=== PATIENT | female | born 1995 | race Caucasian/White ===

== ENCOUNTER 2017-12-08 15:00 | Emergency (ER) | payer BC ==
[2017-12-08] MEDS ORDERED: METOCLOPRAMIDE HCL ORAL SOLN 10 MG/10 ML UDCUP PO ONE (17:20)
[2017-12-08] MEDS ORDERED: MAG HYDROX/AL HYDROX/SIMETH SUSP 30 ML UDCUP PO ONE (17:20)
[2017-12-08] MEDS ORDERED: LIDOCAINE 2% VISCOUS SOLN 20 ML UDCUP PO ONE (17:20)
--- NOTE | 2017-12-08 17:22 | ER Document Report ---
ED General - General Chief Complaint: Abdominal Pain Stated Complaint: ABDOMINAL PAIN Time Seen by Provider: 12/08/17 17:15 Mode of Arrival: Ambulatory Information source: Patient Notes: 22-year-old female presents with epigastric burning sensation has been intermittent since July. Patient notes over the past 2 days has worsened. She admits to bad taste in her mouth worsens with spicy foods. She denies any fevers or chills denies any significant right-sided or left-sided pain states it is right in the middle TRAVEL OUTSIDE OF THE [place] IN LAST 30 DAYS: No - HPI Onset: Other Onset/Duration: Intermittent, Worse Quality of pain: Burning Severity: Mild Pain Level: 1 Associated symptoms: Nausea Exacerbated by: Food Relieved by: Denies Similar symptoms previously: Yes Recently seen / treated by doctor: Yes - Related Data Allergies/Adverse Reactions: apple Allergy (Verified 12/08/17 15:01) Cephalosporins Allergy (Verified 12/08/17 15:01) erythromycin base Allergy (Verified 12/08/17 15:01) Penicillins Allergy (Verified 12/08/17 15:01) rice Allergy (Verified 12/08/17 15:01) wheat Allergy (Verified 12/08/17 15:01) ENVIRONMENTAL Allergy (Uncoded 12/08/17 15:01) Past Medical History - Social History Smoking Status: Never Smoker Cigarette use (# per day): No Chew tobacco use (# tins/day): No Smoking Education Provided: No Frequency of alcohol use: None Drug Abuse: None Family History: Reviewed & Not Pertinent Patient has suicidal ideation: No Patient has homicidal ideation: No Pulmonary Medical History: Reports: Hx Asthma Renal/ Medical History: Denies: Hx Peritoneal Dialysis Past Surgical History: Reports: Hx Tonsillectomy Review of Systems - Review of Systems Notes: REVIEW OF SYSTEMS: CONSTITUTIONAL : Denies fever, chills, or sweats. Denies recent illness. EENT: Denies eye, ear, throat, or mouth pain or symptoms. Denies nasal or sinus congestion or discharge. Denies throat, tongue, or mouth swelling or difficulty swallowing. CARDIOVASCULAR: Denies chest pain. Denies palpitations or racing or irregular heart beat. Denies ankle edema. RESPIRATORY: Denies cough, cold, or chest congestion. Denies shortness of breath, difficulty breathing, or wheezing. GASTROINTESTINAL: Admits to abdominal pain GENITOURINARY: Denies difficulty urinating, painful urination, burning, frequency, blood in urine, or discharge. FEMALE GENITOURINARY: Denies vaginal bleeding, heavy or abnormal periods, irregular periods. Denies vaginal discharge or odor. MUSCULOSKELETAL: Denies back or neck pain or stiffness. Denies joint pain or swelling. SKIN: Denies rash, lesions or sores. HEMATOLOGIC : Denies easy bruising or bleeding. LYMPHATIC: Denies swollen, enlarged glands. NEUROLOGICAL: Denies confusion or altered mental status. Denies passing out or loss of consciousness. Denies dizziness or lightheadedness. Denies headache. Denies weakness or paralysis or loss of use of either side. Denies problems with gait or speech. Denies sensory loss, numbness, or tingling. Denies seizures. PSYCHIATRIC: Denies anxiety or stress. Denies depression, suicidal ideation, or homicidal ideation. ALL OTHER SYSTEMS REVIEWED AND NEGATIVE. PHYSICAL EXAMINATION: GENERAL: Well-appearing, well-nourished and in no acute distress. HEAD: Atraumatic, normocephalic. EYES: Pupils equal round and reactive to light, extraocular movements intact, conjunctiva are normal. ENT: Nares patent, oropharynx clear without exudates. Moist mucous membranes. NECK: Normal range of motion, supple without lymphadenopathy LUNGS: Breath sounds clear to auscultation bilaterally and equal. No wheezes rales or rhonchi. HEART: Regular rate and rhythm without murmurs ABDOMEN: Tender in epigastric region Female : deferred Musculoskeletal: Normal range of motion, no pitting or edema. No cyanosis. NEUROLOGICAL: Cranial nerves grossly intact. Normal speech, normal gait. Normal sensory, motor exams PSYCH: Normal mood, normal affect. SKIN: Warm, Dry, normal turgor, no rashes or lesions noted. Dictation was performed using [employer] voice recognition software Physical Exam - Vital signs Vitals: Temp Pulse Resp BP Pulse Ox 99.2 F 95 16 125/73 100 12/08/17 15:06 12/08/17 15:06 12/08/17 15:06 12/08/17 15:06 12/08/17 15:06 Course - Re-evaluation Re-evalutation: 12/08/17 17:21 We discussed cholecystitis pancreatitis and other intra-abdominal sources of infection pain, it appears to be more epigastric and related to gastritis, GI cocktail has been ordered 12/08/17 17:59 Patient notes symptoms are completely resolved with GI cocktail will discharge home at this time After performing a Medical Screening Examination, I estimate there is LOW risk for ACUTE APPENDICITIS, BOWEL OBSTRUCTION, ACUTE CHOLECYSTITIS, PERFORATED DIVERTICULITIS, INCARCERATED HERNIA, PANCREATITIS, PELVIC INFLAMMATORY DISEASE, PERFORATED ULCER, ECTOPIC , or TUBO-OVARIAN ABSCESS, thus I consider the discharge disposition reasonable. Also, there is no evidence or peritonitis , sepsis, or toxicity. I have reevaluated this patient multiple times and no significant life threatening changes are noted. The patient and I have discussed the diagnosis and risks, and we agree with discharging home with close follow-up with the understanding that symptoms and presentations can change. We also discussed returning to the Emergency Department immediately if new or worsening symptoms occur. We have discussed the symptoms which are most concerning (e.g., bloody stool, fever, changing or worsening pain, vomiting) that necessitate immediate return. - Vital Signs Vital signs: Temp Pulse Resp BP Pulse Ox 99.2 F 95 16 125/73 100 12/08/17 15:06 12/08/17 15:06 12/08/17 15:06 12/08/17 15:06 12/08/17 15:06 Discharge - Discharge Clinical Impression: Epigastric pain GERD (gastroesophageal reflux disease) Qualifiers: Esophagitis presence: with esophagitis Qualified Code(s): K21.0 - Gastro- esophageal reflux disease with esophagitis Condition: Stable Disposition: HOME, SELF-CARE Instructions: Reflux Disease (GERD) ([facility]) Additional Instructions: Follow up with your physician tomorrow for further care or return to the ED IMMEDIATELY if symptoms worsen or new concerns occur. If you cannot afford to follow up with your primary care physician a list of low cost clinics have been provided at the end of your discharge papers as well. Prescriptions: Famotidine [Pepcid 40 mg Tablet] 40 mg PO DAILY #30 tablet
[2017-12-08 18:05] VITALS: BP 108/65
== END 2017-12-08 18:05 | disposition home or self-care (01) ==
LOC: ER 15:00
DX: R10.13 Epigastric pain (principal); K21.0 Gastro-esophageal reflux disease with esophagitis
CPT/HCPCS: 99283; J3490

== ENCOUNTER 2017-12-10 | Observation (INO) | payer BC ==
[2017-12-10] MEDS ORDERED: OXYCODONE-ACETAMINOPHEN 5-325 MG TABLET PO ONE (00:49)
[2017-12-10] MEDS ORDERED: ONDANSETRON 4 MG TAB.RAPDIS PO ONE (00:49)
[2017-12-10] MEDS ORDERED: NORMAL SALINE 1000 ML 1,000 ML IV ONE (00:49)
--- NOTE | 2017-12-10 00:52 | ER Document Report ---
ED GI/ - General Chief Complaint: Abdominal Pain Stated Complaint: ABDOMINAL PAIN Time Seen by Provider: 12/10/17 00:43 Notes: Patient is a 22-year-old female that comes emergency department for chief complaint of upper abdominal pain and she states symptoms started 3 days ago, have been worsening, she was seen yesterday, started on Pepcid, she states she has worsened since then and now she feels pain radiating out to the sides from the middle of her upper abdomen. She states that she almost cannot eat anything unless extremely bland things like oatmeal and small amounts. If she eats anything else the pain becomes severe and she develops nausea. She denies vomiting, fever, abnormal bowel movements. She is on the Depo-Provera shot, takes allergy medications, has had tonsillectomy, denies any other medical history. TRAVEL OUTSIDE OF THE [place] IN LAST 30 DAYS: No - Related Data Allergies/Adverse Reactions: apple Allergy (Verified 12/08/17 15:01) Cephalosporins Allergy (Verified 12/08/17 15:01) erythromycin base Allergy (Verified 12/08/17 15:01) Penicillins Allergy (Verified 12/08/17 15:01) rice Allergy (Verified 12/08/17 15:01) wheat Allergy (Verified 12/08/17 15:01) ENVIRONMENTAL Allergy (Uncoded 12/08/17 15:01) Past Medical History - General Information source: Patient - Social History Smoking Status: Never Smoker Frequency of alcohol use: None Drug Abuse: None Lives with: Family Family History: Reviewed & Not Pertinent Pulmonary Medical History: Reports: Hx Asthma Renal/ Medical History: Denies: Hx Peritoneal Dialysis Past Surgical History: Reports: Hx Tonsillectomy - Immunizations Immunizations up to date: Yes Hx Diphtheria, Pertussis, Tetanus Vaccination: Yes Review of Systems - Review of Systems Constitutional: No symptoms reported EENT: No symptoms reported Cardiovascular: No symptoms reported Respiratory: No symptoms reported Gastrointestinal: See HPI Genitourinary: No symptoms reported Female Genitourinary: No symptoms reported Musculoskeletal: No symptoms reported Skin: No symptoms reported Hematologic/Lymphatic: No symptoms reported Neurological/Psychological: No symptoms reported Physical Exam - Vital signs Vitals: Temp Pulse BP Pulse Ox 98.7 F 114 H 129/86 H 99 12/10/17 00:26 12/10/17 00:26 12/10/17 00:26 12/10/17 00:26 Interpretation: Normal - General General appearance: Alert In distress: None - HEENT Head: Normocephalic, Atraumatic Eyes: Normal Pupils: PERRL - Respiratory Respiratory status: No respiratory distress Chest status: Nontender Breath sounds: Normal Chest palpation: Normal - Cardiovascular Rhythm: Regular Heart sounds: Normal auscultation Murmur: No - Abdominal Inspection: Normal Distension: No distension. No: Distended Bowel sounds: Normal Tenderness: Tender - Tender in the right upper quadrant and epigastric areas with wincing. Lower abdomen is completely benign, Knapp's sign. No: McBurney' s point, Rebound Organomegaly: No organomegaly - Back Back: Normal, Nontender - Extremities General upper extremity: Normal inspection, Nontender, Normal color, Normal ROM , Normal temperature General lower extremity: Normal inspection, Nontender, Normal color, Normal ROM , Normal temperature, Normal weight bearing. No: Misti's sign - Neurological Neuro grossly intact: Yes Cognition: Normal Orientation: AAOx4 Ulisses Coma Scale Eye Opening: Spontaneous Ulisses Coma Scale Verbal: Oriented Ulisses Coma Scale Motor: Obeys Commands [place] Coma Scale Total: 15 Speech: Normal Motor strength normal: LUE, RUE, LLE, RLE Sensory: Normal - Psychological Associated symptoms: Normal affect, Normal mood - Skin Skin Temperature: Warm Skin Moisture: Dry Skin Color: Normal Course - Re-evaluation Re-evalutation: CBC shows mild leukocytosis at 10.8 with no bandemia or shift. Chemistry unremarkable including lipase. HCG is negative. 12/10/17 03:00 Patient reevaluated at bedside. Pain medication improved her symptoms but she does continue to have pain. She continues to have significant amount of pain on examination. She is otherwise well-appearing. Patient stating that she can barely eat and only intermittently, can barely sleep because of the level discomfort that she now has. 12/10/17 Ultrasound showing cholelithiasis and sludge without cholecystitis or choledocholithiasis. I discussed with patient in detail, she requests to speak to a surgeon because she has reached a point where she cannot really eat anything, she cannot get comfortable or sleep, and her pain returned after being given pain medication. Patient will be given additional pain medication, be kept n.p.o., given fluids, and will discuss with surgery. Discussed with Dr. Milton, general surgery, he will accept patient to his service and she will have surgery later today. Patient states satisfaction and agreement with this plan. - Vital Signs Vital signs: Temp Pulse Resp BP Pulse Ox 97.9 F 81 112/65 100 12/10/17 04:31 12/10/17 04:31 12/10/17 04:31 12/10/17 04:31 - Laboratory Result Diagrams: 12/10/17 01:15 12/10/17 01:15 Laboratory results interpreted by me: 12/10/17 12/10/17 01:15 01:15 WBC 10.9 H Glucose 115 H Discharge - Discharge Clinical Impression: RUQ abdominal pain Cholelithiasis Qualifiers: Cholelithiasis location: gallbladder Cholecystitis presence: without cholecystitis Biliary obstruction: without biliary obstruction Qualified Code(s) : K80.20 - Calculus of gallbladder without cholecystitis without obstruction Condition: Stable Disposition: ADMITTED OBSERVATION Admitting Provider: Surgicalist Unit Admitted: Surgical Floor
[2017-12-10 01:30] LABS: ABSOLUTE BASOPHILS # (AUTO) 0.1 10^3/uL (0.0-0.2); ABSOLUTE EOSINOPHILS # (AUTO) 0.5 10^3/uL (0.0-0.6); ABSOLUTE LYMPHOCYTES (AUTO) 2.9 10^3/uL (0.5-4.7); ABSOLUTE MONOCYTES (AUTO) 0.9 10^3/uL (0.1-1.4); ABSOLUTE NEUT (AUTO) 6.4 10^3/uL (1.7-8.2); EOSINOPHILS % (AUTO) 4.3 % (0-6); HEMATOCRIT 42.6 % (36.0-47.0); HEMOGLOBIN 14.4 g/dL (12.0-15.5); MEAN CORPUSCULAR HEMOGLOBIN 27.9 pg (27.0-33.4); MEAN CORPUSCULAR HGB CONC 33.7 g/dL (32.0-36.0); MEAN CORPUSCULAR VOLUME 83 fl (80-97); MONOCYTES % (AUTO) 8.6 % (3-13); PLATELET COUNT 249 10^3/uL (150-450); RED BLOOD COUNT 5.14 10^6/uL (3.72-5.28); SEGMENTED NEUTROPHILS % (AUTO) 59.1 % (42-78); TOTAL CELLS COUNTED % (AUTO) 100 %; WHITE BLOOD COUNT 10.9 10^3/uL (4.0-10.5)
[2017-12-10 01:39] LABS: ALANINE AMINOTRANSFERASE 26 U/L (9-52); ALBUMIN 4.1 g/dL (3.5-5.0); ALKALINE PHOSPHATASE 66 U/L (38-126); ANION GAP 8 (5-19); ASPARTATE AMINO TRANSFERASE 18 U/L (14-36); BILIRUBIN,DIRECT 0.3 mg/dL (0.0-0.4); BILIRUBIN,TOTAL 0.3 mg/dL (0.2-1.3); BLOOD UREA NITROGEN 9 mg/dL (7-20); CARBON DIOXIDE 25 mmol/L (22-30); CHLORIDE 107 mmol/L (98-107); GLUCOSE 115 mg/dL (75-110); LIPASE 156.2 U/L (23-300); SODIUM 140.4 mmol/L (137-145); TOTAL PROTEIN 7.1 g/dL (6.3-8.2)
[2017-12-10] MEDS ORDERED: NORMAL SALINE 1000 ML 1,000 ML IV PRN (02:56)
--- NOTE | 2017-12-10 03:55 | RADIOLOGY REPORT (SQ) ---
EXAM DESCRIPTION: U/S ABDOMEN LIMITED W/O DOP CLINICAL HISTORY: epigastric and RUQ pain COMPARISON: None. TECHNIQUE: Real-time sonographic images of the right upper abdomen were obtained using a curved multihertz transducer. FINDINGS: The visualized portions of the pancreas are unremarkable. The visualized portions of the aorta and IVC are unremarkable. The liver has normal contour and increased echogenicity. Hepatopedal flow in the portal vein. Common bile duct measures 0.5 cm. Echogenic material noted in the gallbladder lumen. 2 shadowing echogenic structures in the gallbladder lumen identified, the largest measuring 1.1 cm at the gallbladder neck. Normal gallbladder wall thickness. Negative reported sonographic Knapp sign. The right kidney measures 11.0 cm in length. No hydronephrosis, solid renal mass, or shadowing calculi. IMPRESSION: 1. Cholelithiasis with gallbladder sludge. These findings could be seen with but are not diagnostic for acute cholecystitis. 2. Hepatic steatosis.
[2017-12-10] MEDS ORDERED: ONDANSETRON HCL INJ/PF 4 MG/2 ML SDV IV ONE (06:14)
[2017-12-10] MEDS ORDERED: FENTANYL CITRATE INJ/PF 100 MCG/2 ML AMPUL IV ONE (06:14)
[2017-12-10] MEDS ORDERED: ONDANSETRON HCL INJ/PF 4 MG/2 ML SDV IV PRN (06:56)
[2017-12-10] MEDS ORDERED: HYDROMORPHONE HCL INJ/PF 2 MG/ML AMPULE IV PRN (06:56)
[2017-12-10] MEDS ORDERED: LEVOFLOXACIN 750 MG/D5W RTU 750 MG/150 ML RTUPB IV SCH (06:57)
[2017-12-10] MEDS ORDERED: HYDROMORPHONE HCL INJ/PF 2 MG/ML AMPULE ONE ×4 (08:17→15:42)
[2017-12-10] MEDS ORDERED: GLYCOPYRROLATE INJ 0.4 MG/2 ML VIAL ONE ×2 (09:59→10:00)
[2017-12-10] MEDS ORDERED: DEXAMETHASONE SOD PHOSPHATE INJ 4 MG/1 ML VIAL ONE ×2 (09:59→10:00)
[2017-12-10] MEDS ORDERED: ROCURONIUM BROMIDE INJ 50 MG/5 ML VIAL IV ONE ×2 (09:59→10:00)
[2017-12-10] MEDS ORDERED: LIDOCAINE 2% INJ-PF (20 MG/ML) 2 ML AMPUL ONE ×2 (09:59→10:00)
[2017-12-10] MEDS ORDERED: ONDANSETRON HCL INJ/PF 4 MG/2 ML SDV ONE ×2 (09:59→10:00)
[2017-12-10] MEDS ORDERED: SUCCINYLCHOLINE CHLORIDE INJ 200 MG/10 ML VIAL ONE ×2 (09:59→10:00)
[2017-12-10] MEDS ORDERED: NEOSTIGMINE METHYLSULFATE 10 MG/10 ML VIAL ONE (10:00)
[2017-12-10] MEDS ORDERED: PROMETHAZINE HCL INJ 25 MG/1 ML VIAL ONE ×3 (10:22→15:55)
[2017-12-10] MEDS ORDERED: PROMETHAZINE HCL INJ 25 MG/1 ML VIAL IV PRN ×2 (10:24→14:22)
[2017-12-10] MEDS: POTASSI CL 20 MEQ/D5-1/2NS 1L 1000 ML IV PRN ×2 (10:44→20:01)
[2017-12-10] MEDS ORDERED: BUPIVACAINE HCL 0.25 % INJ/PF (2.5 MG/1 ML) 30 ML VIAL ONE ×2 (11:53→13:55)
[2017-12-10] MEDS ORDERED: FENTANYL CITRATE INJ/PF 100 MCG/2 ML AMPUL ONE (13:36)
[2017-12-10] MEDS ORDERED: ACETAMINOPHEN 100 ML IV ONE (13:36)
[2017-12-10] MEDS ORDERED: MIDAZOLAM 2 MG/2 ML INJ ONE (13:36)
[2017-12-10] MEDS ORDERED: PROPOFOL INJ 200 MG/20 ML VIAL IV ONE (13:36)
[2017-12-10] MEDS ORDERED: MEPERIDINE HCL/PF INJ 25 MG/1 ML DISP.SYRIN IV PRN (14:22)
[2017-12-10] MEDS ORDERED: MORPHINE SULFATE 10 MG/ML INJ IV PRN (14:22)
[2017-12-10] MEDS ORDERED: DIPHENHYDRAMINE HCL 50 MG/ML VIAL IV PRN (14:22)
[2017-12-10] MEDS ORDERED: FENTANYL CITRATE INJ/PF 100 MCG/2 ML AMPUL IV PRN ×3 (14:22)
[2017-12-10] MEDS: HYDROMORPHONE HCL INJ/PF 2 MG/ML AMPULE IV PRN (15:40)
--- NOTE | 2017-12-10 16:09 | OPERATIVE REPORT E ---
Operative Report NAME: FARHAN MADSEN : 1995 AGE: 22Y DATE OF SURGERY: 12/10/2017 ROOM: 219 PREOPERATIVE DIAGNOSIS: ACUTE CHOLECYSTITIS. POSTOPERATIVE DIAGNOSIS: ACUTE CALCULOUS CHOLECYSTITIS. OPERATION: Laparoscopic cholecystectomy. SURGEON: MELLISA ROSENBERG M.D. ANESTHESIA: General. ESTIMATED BLOOD LOSS: Less than 10 mL. SPECIMEN: Multiple gallstones and the gallbladder. HISTORY/INDICATIONS: As described. PROCEDURE: After induction of general anesthesia, in supine position, with SCD boots, abdomen was cleaned and prepped in sterile field. Initial access, supraumbilical 12-mm trocar inserted with open technique, and then a 5-mm trocar in the epigastric area and another 5-mm in the right upper quadrant area. Findings: Gallbladder was acutely inflamed, surrounded by multiple adhesions from the gallbladder to the omentum. All the adhesions were taken down. Gallbladder initially decompressed by opening the gallbladder. Basically, patient had a mucocele with obstructed gallbladder. Then the gallbladder was dissected down from fundus down approach carefully. Cystic artery was identified and dissected away and then divided between clips with the Harmonic scalpel. Then the cystic duct was clearly dissected all around and then it was securely ligated with 2 applications of Endoloops, 1 was 0 Vicryl and 1 was 0 PDS, and the loops were applied, securely ligating the cystic duct. Then it was divided close to the gallbladder neck. Gallbladder along with its contents was retrieved with an Endo Catch bag. Abdominal cavity copiously irrigated and suctioned out, completely and thoroughly hemostatic. Then all the trocars were removed and pneumoperitoneum . Closed with 0 Vicryl for the fascia and 2-0 and 4-0 Vicryl for the skin. Patient tolerated procedure well and was taken to recovery room in stable condition. DICTATING PHYSICIAN: MELLISA ROSENBERG M.D. [id number] PHY#: [id number] ID: [id number] JOB#: [id number] ACCT: [id number] cc:MELLISA ROSENBERG M.D. > [facility]
--- NOTE | 2017-12-10 16:13 | HISTORY AND PHYSICAL E ---
History and Physical NAME: FARHAN MADSEN : 1995 AGE: 22Y ADMITTED: 12/10/2017 ROOM: 219 HISTORY OF PRESENT ILLNESS: Patient presented to emergency room with history of severe acute abdominal pain for the past several hours, not getting any better. She underwent ultrasound of the gallbladder test done, which revealed multiple gallstones impacting the gallbladder. Patient received intravenous pain medication and did not have relief of the pain. Patient has a history of upper abdominal pain in the past. She is otherwise a very healthy young female patient. PAST MEDICAL PROBLEMS: None. PAST SURGICAL HISTORY: None. REVIEW OF SYSTEMS: As per examination. PHYSICAL EXAMINATION: GENERAL: Patient is awake, alert, oriented, afebrile. HEENT: No icterus in the sclerae. NECK: No lymphadenopathy, no masses, no thyromegaly. CARDIOVASCULAR: Both heart sounds are regular. No murmurs or gallops. RESPIRATORY: Both lungs are clear to auscultation. ABDOMEN: She has no distention. Soft abdomen. Tenderness in right upper quadrant area. No palpable masses. No palpable hernia. Normal bowel sounds on auscultation. EXTREMITIES: Normally perfused. DIAGNOSTICS: Ultrasound of the gallbladder revealed multiple large gallstones. IMPRESSION: Cholelithiasis, cholecystitis. PLAN: Admit. IV antibiotic. Prepare for laparoscopic cholecystectomy today. DICTATING PHYSICIAN: MELLISA ROSENBERG M.D. [id number] PHY#: [id number] ID: [id number] JOB#: [id number] ACCT: [id number] cc:NO Jaleel LOO M.D. >
[2017-12-11] MEDS: HYDROMORPHONE HCL INJ/PF 2 MG/ML AMPULE IV PRN (00:56)
[2017-12-11] MEDS: POTASSI CL 20 MEQ/D5-1/2NS 1L 1000 ML IV PRN (06:17)
[2017-12-11] MEDS: HYDROCODONE/ACETAMINOPHEN 5-325 MG TABLET PO PRN ×2 (07:30→14:38)
[2017-12-11] MEDS ORDERED: ENOXAPARIN SODIUM INJ 40 MG/0.4 ML DISP.SYRIN SUBCUT SCH (10:00)
[2017-12-11 14:12] VITALS: BP 115/65
[2017-12-11] MEDS ORDERED: INFLUENZA ADLT QUAD (36MOS+) 2017-18 VAC 0.5 ML SYR IM PRN (14:26)
--- NOTE | 2017-12-11 20:00 | PDOC DISCHARGE SUMMARY ---
General - Admit/Disc Date/PCP Admission Date/Primary Care Provider: 12/10/17 06:22 NO LOCALMD Discharge Date: 12/11/17 - Additional Information Resuscitation Status: Full Code Discharge Diet: As Tolerated, Regular Discharge Activity: Activity As Tolerated, No Lifting Over 10 Pounds, No Lifting /Push/Pulling, No tub bath Prescriptions: Acetaminophen with Codeine [Tylenol #3 Tablet] 1 each PO Q6HP PRN #30 tablet PRN Reason: Docusate Sodium [Colace 100 mg Capsule] 100 mg PO BID #60 capsule Home Medications: Albuterol Sulfate [Ventolin Hfa] 1 puff IH Q4HP PRN 12/10/17 Famotidine [Pepcid 20 mg Tablet] 20 mg PO DAILY 12/10/17 Medroxyprogesterone Acetate [Depo-Provera] 150 mg PO .MONTHLY 12/10/17 Acetaminophen with Codeine [Tylenol #3 Tablet] 1 each PO Q6HP PRN #30 tablet 10/16 Docusate Sodium [Colace 100 mg Capsule] 100 mg PO BID #60 capsule 12/11/17 History of Present Illness History of Present Illness: FARHAN MADSEN is a 22 year old female who was admitted yesterday with cholelithiasis and RUQ pain and a diagnosis of cholecystitis. She had a laparoscopic cholecystectomy yesterday. Hospital Course Hospital Course: she has done well post laparoscopic cholecystectomy, is tolerating a diet, no nausea or vomiting. Physical Exam Vital Signs: Temp Pulse Resp BP Pulse Ox 98.2 F 73 17 115/65 100 12/11/17 13:47 12/11/17 13:47 12/11/17 13:47 12/11/17 13:47 12/11/17 13:47 Intake & Output 12/10/17 12/11/17 12/12/17 06:59 06:59 06:59 Intake Total 1090 Balance 1090 General appearance: PRESENT: no acute distress, obese, well-developed, well- nourished Head exam: PRESENT: atraumatic, normocephalic Eye exam: PRESENT: conjunctiva pink, EOMI, PERRLA. ABSENT: scleral icterus Ear exam: PRESENT: normal external ear exam Neck exam: ABSENT: carotid bruit, JVD, lymphadenopathy, thyromegaly Respiratory exam: PRESENT: clear to auscultation merna. ABSENT: rales, rhonchi, wheezes Cardiovascular exam: PRESENT: RRR. ABSENT: diastolic murmur, rubs, systolic murmur GI/Abdominal exam: PRESENT: normal bowel sounds, soft, other - incisions are clean, dry, intact. ABSENT: distended, guarding, mass, organolmegaly, rebound, tenderness Neurological exam: PRESENT: alert, awake, oriented to person, oriented to place , oriented to time, oriented to situation, CN II-XII grossly intact. ABSENT: motor sensory deficit Results Impressions: Abdomen Ultrasound 12/10/17 01:53 IMPRESSION: 1. Cholelithiasis with gallbladder sludge. These findings could be seen with but are not diagnostic for acute cholecystitis. 2. Hepatic steatosis. Plan Discharge Plan: discharge home. F/u in [facility] x 1 week home on tyl#3 1-2 tabs po q6hr prn #40 colace 100mg po bid #30 ok to shower no tub baths x 3 weeks no heavy lifting > 10 lbs x 4 weeks Time Spent: Less than 30 Minutes
== END 2017-12-11 15:46 | disposition home or self-care (01) ==
LOC: ER → UNDOADMOB 06:22 → EH 06:22 → 2S 07:50
PROVIDERS: ATTEND Colon & Rectal Surgery
PROC: 0FT44ZZ Resection of Gallbladder, Percutaneous Endoscopic Approach (ICD-10-PCS; principal; 2017-12-10 14:40)
PROC: 3E0234Z Introduction of Serum, Toxoid and Vaccine into Muscle, Percutaneous Approach (ICD-10-PCS; 2017-12-11)
DX: K80.12 Calculus of gallbladder with acute and chronic cholecystitis without obstruction (principal); Z23 Encounter for immunization; Z79.3 Long term (current) use of hormonal contraceptives
CPT/HCPCS: 99285; 96361; 96374; 96375; 36415; 83690; 85025; 81025; 80053; 88304 ×2; 76705; 90686; 94799; 47562; G0378 ×3; J2250; J3490 ×2; J1100; S0119; J3010; J1650; J1170 ×2; J3480 ×2; J2550 ×2; J0330; J2405; J7030; J2704; J1956; J0131; 790

== ENCOUNTER 2018-05-06 18:24 | Emergency (ER) | payer OTHER, BC ==
--- NOTE | 2018-05-06 19:17 | ER Document Report ---
HPI - HPI Onset: Other - 345 this afternoon Onset/Duration: Sudden Pain Level: 0 Context: 22-year-old female whose tetanus is not current who is not breast-feeding and not got a coworkers blood on both arms and her right thumb. She had a hangnail in her right thumb which is inflamed and a dry rash to both forearms. Nickoruiz send her to the emergency department to be evaluated for body substance exposure. She states she had the hepatitis B vaccines. She does not know her immunity status. No known diabetes HIV. No renal or liver disease. Associated Symptoms: None Exacerbated by: Denies Relieved by: Denies Similar symptoms previously: No Recently seen / treated by doctor: No - ROS ROS below otherwise negative: Yes Systems Reviewed and Negative: Yes All other systems reviewed and negative - REPRODUCTIVE Reproductive: DENIES: : Past Medical History - General Information source: Patient - Social History Smoking Status: Never Smoker Frequency of alcohol use: None Drug Abuse: None Lives with: Family Family History: Reviewed & Not Pertinent Pulmonary Medical History: Reports: Hx Asthma, Hx Pneumonia - 2008 Past Surgical History: Reports: Hx Tonsillectomy - Immunizations Immunizations up to date: Yes Hx Diphtheria, Pertussis, Tetanus Vaccination: No Vertical Provider Document - CONSTITUTIONAL Agree With Documented VS: Yes Exam Limitations: No Limitations - INFECTION CONTROL TRAVEL OUTSIDE OF THE [place] IN LAST 30 DAYS: No - HEENT HEENT: Normocephalic Notes: No icterus - NECK Neck: Supple - RESPIRATORY Respiratory: Breath Sounds Normal, No Respiratory Distress - CARDIOVASCULAR Cardiovascular: Regular Rate, Regular Rhythm - MUSCULOSKELETAL/EXTREMETIES Musculoskeletal/Extremeties: MAEW - NEURO Level of Consciousness: Awake, Alert - DERM Integumentary: Rash - Dry excoriated bilateral volar wrist rash an inflamed right thumb nail bed. Course - Re-evaluation Re-evalutation: 05/06/18 21:18 Extensive conversation with the patient including the HIV consent form. The appropriate lab work has been drawn including CBC comprehensive test hepatitis B surface antibody antibody ABC hepatitis and HIV. After long discussion and review with the patient of the postexposure prophylactics policy , antivirals, and information from the PEP hotline the patient has decided to wait until tomorrow to see if the source patient name Efrain comes to the emergency room to have testing done. Bren did send Efrain to the emergency department to be seen but at this time he is not arrived. Patient has all the information needed and I have discussed the case with [facility] nurse practitioner who is here till 2 AM. I also notified the pivot desk about the source patient that may be showing up needing testing. And I will discuss with the patient the rest of her lab results tomorrow morning. - Vital Signs Vital signs: Temp Pulse Resp BP Pulse Ox 99.2 F 81 16 112/70 100 05/06/18 18:41 05/06/18 18:41 05/06/18 18:41 05/06/18 18:41 05/06/18 18:41 - Laboratory Result Diagrams: 05/06/18 19:40 05/06/18 19:40 Discharge - Discharge Clinical Impression: cutaneous blood exposure to arms, merna wrist rash, right thumb hangnail Condition: Good Disposition: HOME, SELF-CARE Instructions: Body Fluid Exposure ([facility]) Additional Instructions: Call me tomorrow morning at [phone] to get the rest of all your testing results If you are called charmainemelania and the recommendation is that she start the antivirals return to the emergency department for the first dose and a prescription for 28 days
[2018-05-06] MEDS ORDERED: DIPH/PERTUSS(ACELL)/TETANUS VAC/PF 0.5 ML SYR (>=10YO) IM ONE (19:30)
[2018-05-06 20:06] LABS: ABSOLUTE BASOPHILS # (AUTO) 0.1 10^3/uL (0.0-0.2); ABSOLUTE EOSINOPHILS # (AUTO) 0.3 10^3/uL (0.0-0.6); ABSOLUTE LYMPHOCYTES (AUTO) 2.7 10^3/uL (0.5-4.7); ABSOLUTE MONOCYTES (AUTO) 0.4 10^3/uL (0.1-1.4); BASOPHILS % (AUTO) 1.6 % (0-2); EOSINOPHILS % (AUTO) 4.6 % (0-6); HEMATOCRIT 41.1 % (36.0-47.0); HEMOGLOBIN 14.2 g/dL (12.0-15.5); LYMPHOCYTES % (AUTO) 35.3 % (13-45); MEAN CORPUSCULAR HEMOGLOBIN 28.6 pg (27.0-33.4); MEAN CORPUSCULAR HGB CONC 34.5 g/dL (32.0-36.0); MEAN CORPUSCULAR VOLUME 83 fl (80-97); MONOCYTES % (AUTO) 4.9 % (3-13); PLATELET COUNT 265 10^3/uL (150-450); RED BLOOD COUNT 4.96 10^6/uL (3.72-5.28); RED CELL DISTRIBUTION WIDTH 13.5 % (11.5-14.0); SEGMENTED NEUTROPHILS % (AUTO) 53.6 % (42-78); TOTAL CELLS COUNTED % (AUTO) 100 %; WHITE BLOOD COUNT 7.5 10^3/uL (4.0-10.5)
[2018-05-06 20:31] LABS: ALANINE AMINOTRANSFERASE 28 U/L (9-52); ALBUMIN 4.3 g/dL (3.5-5.0); ALKALINE PHOSPHATASE 80 U/L (38-126); ANION GAP 12 (5-19); ASPARTATE AMINO TRANSFERASE 28 U/L (14-36); BILIRUBIN,DIRECT 0.3 mg/dL (0.0-0.4); BILIRUBIN,TOTAL 0.3 mg/dL (0.2-1.3); BLOOD UREA NITROGEN 16 mg/dL (7-20); CALCIUM 9.5 mg/dL (8.4-10.2); CARBON DIOXIDE 25 mmol/L (22-30); CHLORIDE 105 mmol/L (98-107); GLUCOSE 84 mg/dL (75-110); POTASSIUM 4.1 mmol/L (3.6-5.0); SODIUM 142.3 mmol/L (137-145); TOTAL PROTEIN 7.8 g/dL (6.3-8.2)
[2018-05-06 21:20] VITALS: BP 125/77
[2018-05-08 05:40] LABS: HEPATITIS A AB IGM Negative (Negative); HEPATITIS B CORE AB IGM Negative (Negative); HEPATITS B SURFACE ANTIGEN Negative (Negative)
[2018-05-08 08:27] LABS: HEPATITIS C VIRUS ANTIBODY 0.1 s/co ratio (0.0-0.9)
== END 2018-05-06 21:19 | disposition home or self-care (01) ==
LOC: ER 18:24
DX: Z77.21 Contact with and (suspected) exposure to potentially hazardous body fluids (principal); Y99.0 Civilian activity done for income or pay; R21 Rash and other nonspecific skin eruption; L03.011 Cellulitis of right finger; Z23 Encounter for immunization
CPT/HCPCS: 36415; 80053; 80074; 84703; 85025; 86317; 86701; 90471; 90715; 99283